=== PATIENT | male | born 1955 | race Two or more races ===

== ENCOUNTER 2021-10-13 16:37 | Inpatient (IN) | payer BC ==
[~2021-10-13] VITALS: Ht 175.3 cm; Wt 86.2 kg
[2021-10-13] MEDS ORDERED: COZAAR50 MG (16:47)
== END 2021-10-15 07:45 | disposition home or self-care (01) | DRG 282 ==
LOC: ER 16:37 → MEDI 19:56
PROVIDERS: ADMIT Internal Medicine; ATTEND Internal Medicine
PROC: B24BZZZ Ultrasonography of Heart with Aorta (ICD-10-PCS; 2021-10-13)
PROC: 4A12X4Z Monitoring of Cardiac Electrical Activity, External Approach (ICD-10-PCS; principal; 2021-10-14)
DX: I21.4 Non-ST elevation (NSTEMI) myocardial infarction (principal); I16.0 Hypertensive urgency; R07.89 Other chest pain; I24.9 Acute ischemic heart disease, unspecified; Z20.822 Contact with and (suspected) exposure to COVID-19